=== PATIENT | female | born 1995 | race Caucasian/White ===

== ENCOUNTER 2022-07-27 08:30 | Day surgery (SDC) | payer OTHER ==
[~2022-07-27] VITALS: Ht 172.7 cm; Wt 112.5 kg
[~2022-07-27 08:30] MED LIST: MULTTAB20 PO; PROB250C PO; RA M500C PO; ZYRTTAB8 PO
[2022-07-27] MEDS ORDERED: LR 1,000 ML IV SCH ×2 (08:45→11:05)
[2022-07-27] MEDS ORDERED: fentaNYL 250 MCG/5 ML INJECTION As Ordered ONE (08:53)
[2022-07-27] MEDS ORDERED: ONDANSETRON 4MG 2ML VIAL As Ordered ONE (08:54)
[2022-07-27] MEDS ORDERED: KETOROLAC 60MG 2ML VIAL As Ordered ONE (08:54)
[2022-07-27] MEDS ORDERED: LIDOCAINE 2% 100MG/5ML SDV (FOR ANES.) As Ordered ONE (08:54)
[2022-07-27] MEDS ORDERED: METOCLOPRAMIDE INJ 10MG/2ML VIAL (J2765 PER 1) As Ordered ONE (08:54)
[2022-07-27] MEDS ORDERED: propofoL 200 MG/20 ML VIAL As Ordered ONE (08:54)
[2022-07-27] MEDS ORDERED: dexameTHASONE 4 MG/ML 1ML VIAL (J1100 PER 1MG) As Ordered ONE (08:54)
[2022-07-27] MEDS ORDERED: MIDAZOLAM INJ 2MG/2ML VIAL (J2250 PER 1MG) As Ordered ONE (08:54)
[2022-07-27 09:06] LABS: HEMATOCRIT 39.3 % (36.0-47.0); HEMOGLOBIN 13.6 g/dl (12.0-15.5); MEAN CORPUSCULAR HEMOGLOBIN 28.7 pg (27.0-33.0); MEAN CORPUSCULAR HGB CONC 34.6 g/dl (32.0-36.5); MEAN CORPUSCULAR VOLUME 82.9 fl (80.0-96.0); PLATELET COUNT, AUTOMATED 294 10^3/uL (150-450); RED BLOOD COUNT 4.74 10^6/uL (4.00-5.40); WHITE BLOOD COUNT 6.6 10^3/uL (4.0-10.0)
[2022-07-27 09:44] LABS: BLOOD UREA NITROGEN 19 MG/DL (7-18); CALCIUM LEVEL 9.5 MG/DL (8.5-10.1); CARBON DIOXIDE LEVEL 23 MEQ/L (21-32); CHLORIDE LEVEL 107 MEQ/L (98-107); CREATININE FOR GFR 0.85 MG/DL (0.55-1.30); GLOMERULAR FILTRATION RATE > 60.0 (>60); GLUCOSE, FASTING 103 MG/DL (70-100); HCG, SERUM QUANTITATIVE < 1.0 MIU/ML; POTASSIUM SERUM 4.4 MEQ/L (3.5-5.1); SODIUM LEVEL 135 MEQ/L (136-145)
[2022-07-27] MEDS ORDERED: ACETAMINOPHEN 650 MG SUPP As Ordered ONE (10:13)
[2022-07-27] MEDS ORDERED: HYDROCORTISONE 1% CREAM 30 GM As Ordered ONE (10:13)
[2022-07-27] MEDS ORDERED: BUPIVACAINE HCL 0.5% 30ML VIAL As Ordered ONE (10:13)
[2022-07-27] MEDS ORDERED: oxyCODONE 5MG TAB PO PRN (11:05)
[2022-07-27] MEDS ORDERED: ONDANSETRON 4MG 2ML VIAL IV PRN (11:05)
[2022-07-27] MEDS ORDERED: fentaNYL 100 MCG/2 ML INJECTION IV PRN (11:05)
[2022-07-27] MEDS ORDERED: MORPHINE 2 MG/ML 1ML VIAL IV PRN (11:05)
[2022-07-27 11:45] VITALS: BP 124/71
[2022-07-27] MEDS ORDERED: KETOROLAC 30 MG/ML 1ML VIAL IV SCH (15:00)
== END 2022-07-27 12:26 | disposition home or self-care (01) ==
LOC: M SDC 08:30
PROVIDERS: ATTEND Obstetrics & Gynecology
DX: N90.69 Other specified hypertrophy of vulva (principal); Z79.899 Other long term (current) drug therapy; L20.9 Atopic dermatitis, unspecified
CPT/HCPCS: 36415; 56620; 80048; 84702; 85027; J1100; J1885; J2250; J2405; J2765; J3010

== ENCOUNTER 2024-02-09 11:09 | Inpatient (IN) | payer OTHER ==
[~2024-02-09] VITALS: Ht 172.7 cm; Wt 107.8 kg
[2024-02-09] VITALS (11 sets, daily range): BP systolic 116–154; BP diastolic 68–91; O2SAT 96
[~2024-02-09 11:09] MED LIST changes: +**PENDING PCN ENTRY XX SCH
[2024-02-09] MEDS ORDERED: PENICILLIN G POTASSIUM 5 MU IV 5 MU in D5W MINI-BAG PLUS 100 ML IV STA (11:46)
[2024-02-09] MEDS ORDERED: OXYTOCIN INJ 10UNITS/ML 1ML VIAL IV PRN (11:50)
[2024-02-09] MEDS ORDERED: D5W/0.9% SODIUM CHLORIDE 1,000 ML IV SCH (11:50)
[2024-02-09] MEDS ORDERED: INSULIN IV RATE CHANGE DOCUMENTATION ML/HR XX SCH (11:50)
[2024-02-09] MEDS ORDERED: OXYTOCIN INJ 10UNITS/ML 1ML VIAL IM PRN (11:50)
[2024-02-09] MEDS ORDERED: miSOPROStol 50MCG 1/2 TABLET PO PRN (11:50)
[2024-02-09] MEDS ORDERED: METHYLERGONOVINE MALEATE 0.2MG/ML 1ML VIAL IM PRN (11:50)
[2024-02-09] MEDS ORDERED: CARBOPROST TROMETHAMINE 250 MCG/ML AMP IM PRN (11:50)
[2024-02-09] MEDS ORDERED: OXYTOCIN DRIP 30 UNITS in IV 1 EA IV SCH (11:50)
[2024-02-09] MEDS ORDERED: TRANEXAMIC ACID INJection 1,000 MG in NS 100 ML IV PRN (11:50)
[2024-02-09] MEDS ORDERED: OXYTOCIN DRIP 30 UNITS in IV 1 EA IV PRN (11:50)
[2024-02-09 11:51] LABS: HEMATOCRIT 36.8 % (36.0-47.0); HEMOGLOBIN 12.7 g/dl (12.0-15.5); MEAN CORPUSCULAR HEMOGLOBIN 29.1 pg (27.0-33.0); MEAN CORPUSCULAR HGB CONC 34.5 g/dl (32.0-36.5); MEAN CORPUSCULAR VOLUME 84.2 fl (80.0-96.0); PLATELET COUNT, AUTOMATED 205 10^3/uL (150-450); RED BLOOD COUNT 4.37 10^6/uL (4.00-5.40); WHITE BLOOD COUNT 7.8 10^3/uL (4.0-10.0)
[2024-02-09] MEDS ORDERED: [UNRECOGNIZED DRUG - CODE] PO (11:54)
[2024-02-09] MEDS ORDERED: HUMU1INJ SC (11:54)
[2024-02-09] MEDS ORDERED: HOME MED LIST COMPLETE! XX SCH (11:55)
[2024-02-09] MEDS: LR 1,000 ML IV SCH ×2 (12:16→13:21)
[2024-02-09 12:20] LABS: URIC ACID 4.7 MG/DL (3.1-7.8)
[2024-02-09 12:22] LABS: LDH LACTATE DEHYDROGENASE 129 U/L (120-246)
[2024-02-09 12:23] LABS: ALBUMIN 2.8 G/DL (3.2-5.2); ALKALINE PHOSPHATASE 91 U/L (46-116); ALT/SGPT 35 U/L (7.0-40); AST/SGOT 19 U/L (<34); BILIRUBIN,TOTAL 0.5 MG/DL (0.3-1.2); BLOOD UREA NITROGEN 11 MG/DL (9-23); CALCIUM LEVEL 8.5 MG/DL (8.5-10.1); CARBON DIOXIDE LEVEL 22 MMOL/L (20-31); CHLORIDE LEVEL 109 MMOL/L (98-107); CREATININE FOR GFR 0.58 MG/DL (0.55-1.30); GLOMERULAR FILTRATION RATE > 60.0 (>60); GLUCOSE, FASTING 76 MG/DL (60-100); SODIUM LEVEL 137 MMOL/L (136-145); TOTAL PROTEIN 6.1 G/DL (5.7-8.2)
[2024-02-09] MEDS ORDERED: PEN G POT 3,000,000 UNIT/50 ML 3,000,000 UNIT in IV 1 EA IV SCH ×2 (13:07→15:50)
[2024-02-09] MEDS: PENICILLIN G POTASSIUM 5 MU IV 5 MU in D5W MINI-BAG PLUS 100 ML IV STA (13:21)
[2024-02-09] MEDS: NS 1,000 ML IV SCH (13:29)
[2024-02-09 14:17] LABS: CREATININE,RANDOM URINE 34.1 MG/DL
[2024-02-09] MEDS: INSULIN REGULAR IN 0.9 % NACL 100 UNIT in IV 1 EA IV SCH (14:24)
[2024-02-09 14:27] LABS: TOTAL PROTEIN,RANDOM URINE < 6.0 MG/DL (0.0-14.0)
[2024-02-09] MEDS: PEN G POT 3,000,000 UNIT/50 ML 3,000,000 UNIT in IV 1 EA IV SCH (17:21)
[2024-02-09] MEDS ORDERED: FENTANYL 2MCG/ML ROPIVACAINE 0.2% IN 0.9% NACL 100ML IVBAG As Ordered ONE (19:04)
[2024-02-09] MEDS: OXYTOCIN DRIP 30 UNITS in IV 1 EA IV PRN (19:20)
[2024-02-09] MEDS: LIDOCAINE 1% MDV 20ML VIAL INFIL PRN (19:20)
[2024-02-09] MEDS ORDERED: ANUSOL HC CREAM 30GM TOP PRN (19:35)
[2024-02-09] MEDS ORDERED: RHOGAM 300MCG (1500IU) INJ IM SCH (19:35)
[2024-02-09] MEDS ORDERED: MOM 30ML SUSPENSION UDC PO PRN (19:35)
[2024-02-09] MEDS: IBUPROFEN 800 MG TAB PO PRN (21:43)
[2024-02-10] MEDS: ACETAMINOPHEN 500 MG TAB PO PRN (02:32)
[2024-02-10] MEDS: DOCUSATE SODIUM 100MG CAPSULE PO PRN (02:32)
[2024-02-10 05:53] VITALS: BP 123/81; O2SAT 97
[2024-02-10] MEDS: PRENATAL VITAMINS CHEWABLE TABLET PO SCH (07:38)
[2024-02-10 18:00] VITALS: BP 131/79; O2SAT 99
[2024-02-10] MEDS: DIBUCAINE 1% OINTMENT 30GM TOP PRN (20:13)
[2024-02-11 06:01] VITALS: BP 126/61; O2SAT 97
[2024-02-11] MEDS: MEASLES,MUMPS,RUBELLA VACCINE INJ (MMR-II) SC.IMMUN ONE (07:38)
== END 2024-02-11 12:30 | disposition home or self-care (01) | DRG 807 ==
LOC: M LDI 11:09 → M OBS 21:10
PROVIDERS: ADMIT Obstetrics & Gynecology; ATTEND Obstetrics & Gynecology
PROC: 10E0XZZ Delivery of Products of Conception, External Approach (ICD-10-PCS; principal; 2024-02-09)
PROC: 0HQ9XZZ Repair Perineum Skin, External Approach (ICD-10-PCS; 2024-02-09)
PROC: 3E0P7GC Introduction of Other Therapeutic Substance into Female Reproductive, Via Natural or Artificial Opening (ICD-10-PCS; 2024-02-09)
PROC: 10907ZC Drainage of Amniotic Fluid, Therapeutic from Products of Conception, Via Natural or Artificial Opening (ICD-10-PCS; 2024-02-09)
DX: O24.424 Gestational diabetes mellitus in childbirth, insulin controlled (principal); Z37.0 Single live birth; Z3A.40 40 weeks gestation of pregnancy; O99.824 Streptococcus B carrier state complicating childbirth; O99.214 Obesity complicating childbirth; E66.9 Obesity, unspecified; O69.82X0 Labor and delivery complicated by other cord entanglement, without compression, not applicable or unspecified; O70.0 First degree perineal laceration during delivery